=== PATIENT | female | born 1990 | race Caucasian/White ===

== ENCOUNTER 2017-05-05 07:59 | Emergency (ER) | payer OTHER ==
[~2017-05-05] VITALS: Ht 167.6 cm; Wt 83.9 kg
[2017-05-05 08:00] VITALS: BP_SYST 148
[2017-05-05 08:41] VITALS: BP_SYST 136
== END 2017-05-05 08:37 | disposition home or self-care (01) ==
LOC: SED 07:59
DX: S60.211A Contusion of right wrist, initial encounter (principal); S00.83XA Contusion of other part of head, initial encounter; V89.2XXA Person injured in unspecified motor-vehicle accident, traffic, initial encounter; Y93.89 Activity, other specified; Y92.89 Other specified places as the place of occurrence of the external cause; Y99.8 Other external cause status
CPT/HCPCS: 81025; 99284